=== PATIENT | male | born 1960 | race Caucasian/White ===

== ENCOUNTER 2023-03-26 06:42 | Day surgery (SDC) | payer BC, OTHER ==
[~2023-03-26] VITALS: Ht 170.2 cm; Wt 114.9 kg
[2023-03-26] MEDS ORDERED: SPIRIVA RESPIMAT4 G3 IH (06:59)
[2023-03-26] MEDS ORDERED: Ventolin/Prove6.7 GM INH (06:59)
[2023-03-26] MEDS ORDERED: MONT10T (07:00)
[2023-03-26] MEDS ORDERED: LISINOPRIL-HCT1 EAC1 PO (07:00)
[2023-03-26] MEDS ORDERED: TAMSULOSIN HCL0.4 M1 PO (07:00)
--- NOTE | 2023-03-26 07:17 | NUR ---
03/26/23 0717 Lorraine Hobson PT SITTING COMFORTABLY IN BED. CALL LIGHT WITHIN REACH. BED IN LOWEST POISITION. NO QUESTIONS OR CONCERNS FOR THIS RN.
--- NOTE | 2023-03-26 08:17 | NUR ---
03/26/23 0817 Maxine Dawn LIDOCAINE 2% WITH EPI 1:100,000 MIXED 1:1 WITH NORMAL SALINE TO MAKE LIDOCAINE 1% WITH EPI 1:200,000 FOR INJECTION AT THE OPSITE BY DR JEROME. 30ML OF EPI (1MG/ML) USED TO SOAK PLEDGETS FOR NASAL PACKING DONE BY DR JEROME.
--- NOTE | 2023-03-26 10:17 | NUR ---
03/26/23 THIAGO PACHECO PT WAS TAKEN BACK TO THE OR AT 10:[address] JEROME AFTER LOOKING AT IMAGING.
[2023-03-26 10:31] VITALS: BP 134/95
--- NOTE | 2023-03-26 10:31 | NUR ---
03/26/23 1031 THIAGO MALDONADO PT COMES BACK TO POST-OP AGAIN, STRAIGHT TO SDU.
== END 2023-03-26 11:15 | disposition home or self-care (01) ==
LOC: ORSCSDS 06:42
PROVIDERS: Otolaryngology
PROC: 099X4ZZ Drainage of Left Sphenoid Sinus, Percutaneous Endoscopic Approach (ICD-10-PCS; principal; 2023-03-26 07:30)
PROC: 099R4ZZ Drainage of Left Maxillary Sinus, Percutaneous Endoscopic Approach (ICD-10-PCS; principal; 2023-03-26 07:30)
PROC: 099W4ZZ Drainage of Right Sphenoid Sinus, Percutaneous Endoscopic Approach (ICD-10-PCS; principal; 2023-03-26 07:30)
PROC: 099Q4ZZ Drainage of Right Maxillary Sinus, Percutaneous Endoscopic Approach (ICD-10-PCS; principal; 2023-03-26 07:30)
PROC: 099U4ZZ Drainage of Right Ethmoid Sinus, Percutaneous Endoscopic Approach (ICD-10-PCS; principal; 2023-03-26 07:30)
PROC: 099V4ZZ Drainage of Left Ethmoid Sinus, Percutaneous Endoscopic Approach (ICD-10-PCS; principal; 2023-03-26 07:30)
PROC: 099S4ZZ Drainage of Right Frontal Sinus, Percutaneous Endoscopic Approach (ICD-10-PCS; principal; 2023-03-26 07:30)
PROC: 099T4ZZ Drainage of Left Frontal Sinus, Percutaneous Endoscopic Approach (ICD-10-PCS; principal; 2023-03-26 07:30)
DX: J32.4 Chronic pansinusitis (principal); J33.9 Nasal polyp, unspecified; I10 Essential (primary) hypertension; J45.909 Unspecified asthma, uncomplicated; Z79.899 Other long term (current) drug therapy; E66.9 Obesity, unspecified; Z68.39 Body mass index [BMI] 39.0-39.9, adult
CPT/HCPCS: 70030; 88305; C2625; J0171; J1100; J2250; J2405; J2704; J3010; J7120

== ENCOUNTER → 2023-06-08 | Outpatient (CLI) | payer BC, OTHER ==
[~2023-06-08] MED LIST: LISINOPRIL-HCT1 EAC1 PO; MONT10T; SPIRIVA RESPIMAT4 G3 IH; TAMSULOSIN HCL0.4 M1 PO; Ventolin/Prove6.7 GM INH
[2023-06-08 11:01] LABS: BASOPHILS ABSOLUTE AUTO 0.08 K/mm3 (0.00-0.23); BASOPHILS PERCENT AUTO 1 % (0-2); EOSINOPHILS ABSOLUTE AUTO 0.27 K/mm3 (0.00-0.68); EOSINOPHILS PERCENT AUTO 3 % (0-6); Hemoglobin 15.4 g/dL (13.5-17.5); IMMATURE GRAN ABSOLUTE AUTO 0.03 K/mm3 (0.00-0.10); IMMATURE GRAN PERCENT AUTO 0 % (0-1); LYMPHOCYTES ABSOLUTE AUTO 1.16 K/mm3 (0.84-5.20); LYMPHOCYTES PERCENT AUTO 12 % (21-46); MONOCYTES ABSOLUTE AUTO 0.64 K/mm3 (0.16-1.47); MONOCYTES PERCENT AUTO 7 % (4-13); Mean Corpuscular HGB 29.8 pg (26.0-34.0); Mean Corpuscular HGB Conc 34.2 g/dL (31.5-36.5); Mean Corpuscular Volume 87 fL (80-100); Mean Platelet Volume 9.7 fL (9.1-12.4); NEUTROPHILS ABSOLUTE AUTO 7.47 K/mm3 (1.96-9.15); NEUTROPHILS PERCENT AUTO 78 % (41-73); Platelet Count 247 K/mm3 (150-400); RDW Coefficient Variation 12.1 % (11.7-14.2); RDW Standard Deviation 38.5 fL (35.1-46.3); Red Blood Cell Count 5.17 M/mm3 (4.30-5.90); White Blood Cell Count 9.65 K/mm3 (4.00-11.30)
[2023-06-08 11:14] LABS: Albumin, Blood 3.9 g/dL (3.4-5.0); Albumin/Globulin Ratio 1.1 (0.8-1.8); Bilirubin, Total 0.5 mg/dL (0.1-1.0); Bun/Creatinine Ratio 11.9 (12.0-20.0); Calcium, Blood 9.4 mg/dL (8.5-10.1); Creatinine, Blood 1.09 mg/dL (0.60-1.20); Globulin, Blood 3.5 g/dL (2.2-4.0); Potassium, Blood 3.8 mmol/L (3.5-5.5); Total Protein, Blood 7.4 g/dL (6.4-8.2)
== END | disposition home or self-care (01) ==
LOC: LAB 10:57 → LAB SHORT 10:57
PROVIDERS: Physician Assistant
DX: R06.2 Wheezing (principal)
CPT/HCPCS: 80053; 83880; 84484; 85025

== ENCOUNTER 2023-06-24 10:16 | Inpatient (IN) | payer BC, OTHER ==
[~2023-06-24] VITALS: Ht 170.2 cm; Wt 120.9 kg
[2023-06-24] VITALS (11 sets, daily range): BP systolic 71–104; BP diastolic 51–75
[~2023-06-24 10:16] MED LIST changes: -MONT10T; +MONT10T PO; -SPIRIVA RESPIMAT4 G3 IH; +SPIRIVA RESPIMAT4 G3 INH
[2023-06-24] MEDS ORDERED: Albuterol 2.5 MG/3 ML VIAL INH SCH ×2 (10:30→12:05)
[2023-06-24] MEDS ORDERED: Ipratropium/Albuterol SulF 2.5-0.5MG/3 ML Amp INH ONE (10:30)
[2023-06-24] MEDS ORDERED: Doxycycline Hyclate 100 MG TAB PO ONE (10:30)
[2023-06-24] MEDS ORDERED: MethylPREDNISolone Sod Succ 125 MG Vial IV ONE (10:30)
[2023-06-24] MEDS ORDERED: AZIT250 PO (10:32)
[2023-06-24 11:18] LABS: Base Excess Venous 5.2 mmol/L; Bicarbonate Venous 27.7 mmol/L (24.0-30.0); PCO2 Venous 50.9 mmHg (38-42); pH Blood Venous 7.38 (7.34-7.37)
[2023-06-24 11:20] LABS: BASOPHILS ABSOLUTE AUTO 0.06 K/mm3 (0.00-0.23); BASOPHILS PERCENT AUTO 1 % (0-2); EOSINOPHILS ABSOLUTE AUTO 0.47 K/mm3 (0.00-0.68); EOSINOPHILS PERCENT AUTO 4 % (0-6); Hematocrit 45.5 % (37.0-53.0); Hemoglobin 15.4 g/dL (13.5-17.5); IMMATURE GRAN ABSOLUTE AUTO 0.04 K/mm3 (0.00-0.10); IMMATURE GRAN PERCENT AUTO 0 % (0-1); LYMPHOCYTES ABSOLUTE AUTO 1.22 K/mm3 (0.84-5.20); LYMPHOCYTES PERCENT AUTO 11 % (21-46); MONOCYTES ABSOLUTE AUTO 0.99 K/mm3 (0.16-1.47); MONOCYTES PERCENT AUTO 9 % (4-13); Mean Corpuscular HGB 29.9 pg (26.0-34.0); Mean Corpuscular HGB Conc 33.8 g/dL (31.5-36.5); Mean Corpuscular Volume 88 fL (80-100); Mean Platelet Volume 9.8 fL (9.1-12.4); NEUTROPHILS ABSOLUTE AUTO 8.44 K/mm3 (1.96-9.15); NEUTROPHILS PERCENT AUTO 75 % (41-73); Platelet Count 228 K/mm3 (150-400); RDW Coefficient Variation 12.5 % (11.7-14.2); RDW Standard Deviation 40.9 fL (35.1-46.3); Red Blood Cell Count 5.15 M/mm3 (4.30-5.90); White Blood Cell Count 11.22 K/mm3 (4.00-11.30)
[2023-06-24 11:44] LABS: Albumin, Blood 3.8 g/dL (3.4-5.0); Bilirubin, Total 1.3 mg/dL (0.1-1.0); Bun/Creatinine Ratio 17.8 (12.0-20.0); Calcium, Blood 9.7 mg/dL (8.5-10.1); Creatinine, Blood 0.84 mg/dL (0.60-1.20); Globulin, Blood 3.7 g/dL (2.2-4.0); Total Protein, Blood 7.5 g/dL (6.4-8.2)
[2023-06-24 12:00] LABS: Adenovirus Not Detected (NOT DETECT); Bordetella pertussis Not Detected (NOT DETECT); Chlamydophila pneumoniae Not Detected (NOT DETECT); Coronavirus 229E Not Detected (NOT DETECT); Coronavirus HKU1 Not Detected (NOT DETECT); Coronavirus NL63 Not Detected (NOT DETECT); Coronavirus OC43 Not Detected (NOT DETECT); Human Metapneumovirus Not Detected (NOT DETECT); Human Rhinovirus/Enterovirus Not Detected (NOT DETECT); Influenza A/2009-H1 Not Detected (NOT DETECT); Influenza A/H1 Not Detected (NOT DETECT); Influenza A/H3 Not Detected (NOT DETECT); Influenza B Not Detected (NOT DETECT); Mycoplasma pneumoniae Not Detected (NOT DETECT); Parainfluenza Virus 1 Not Detected (NOT DETECT); Parainfluenza Virus 2 Not Detected (NOT DETECT); Parainfluenza Virus 3 Not Detected (NOT DETECT); Parainfluenza Virus 4 Not Detected (NOT DETECT); Respiratory Syncytial Virus Not Detected (NOT DETECT); SARS-Cov-2 (COVID-19), BioFire Not Detected (NOT DETECT)
[2023-06-24] MEDS ORDERED: NS 1,000 ML IV SCH (12:50)
[2023-06-24] MEDS ORDERED: FLU VACC QS2023-24(6MOS UP)/PF 60 MCG/0.5 ML SYRINGE IM SCH (12:55)
[2023-06-24] MEDS ORDERED: Tiotropium Bromide 2.5 MCG/ACT MIST INHAL (10 ACT/4 GM) INH SCH (13:00)
[2023-06-24] MEDS ORDERED: Ipratropium Bromide INH 0.02% 0.5 mg/2.5ML Vial INH SCH (14:50)
[2023-06-24] MEDS ORDERED: Ipratropium/Albuterol SulF 2.5-0.5MG/3 ML Amp INH SCH (15:25)
[2023-06-24] MEDS ORDERED: Albuterol 2.5 MG/3 ML VIAL INH PRN (15:25)
[2023-06-24] MEDS ORDERED: Midodrine 5 MG Tab PO SCH (15:40)
[2023-06-24] MEDS ORDERED: MethylPREDNISolone Sod Succ 125 MG Vial IV SCH (16:00)
--- NOTE | 2023-06-24 17:16 | NUR ---
PT ADMITTED TO PCU 08. WHEN THE PT WAS ADMITTED TO 08 HE WAS FOUND TO BEE HYPOTENSIVE ON THE INITAIL SET OF VITAL SIGNS. HE RECHECKED MULTIPLE TIMES ON BOTH ARMS AND FOUND THIS TO BE TRUE. THE PT ALREADY RECIEVED A 500CC NS BOLUS IN THE ED RIGHT BEFORE ARRIVING TO PCU. I CALLED DR. VALDIVIA AND LEFT HIM A VOICEMAIL. HE THEN SHOWED UP ON THE UNIT AND SAW THE PT. HE ORDERED 10MG MIDODRINE TID. THE PT IS DIZZY, INCREASED WITH ACTIVITY, AND MOVEMENT. THE PT WAS EDUCATED TO USE THE CALL LIGHT WHEN NEEDING TO GET UP SO HE DOES NOT FALL. HE IS A&OX4, AND CAN CALL APPROPRAITELY. HE IS CURRENTLY ON 4L NC W/ SP02 >90% THE BIPAP IS ON STANDBY IN THE ROOM. HE REPORTS TO HAVE MILD SOB, AND IS FEELING "MUCH BETTER" THEN WHEN HE CAME INTO THE HOSPITAL. THE PT STATES THAT HE HAS BEEN WEANING OFF OF ALCOHOL USE FOR THE LAST COUPLE OF MONTHS. HE DRINKS 1-3 BEERS AND 1-3 SHOTS A DAY. HE STATES HIS LAST DRINK WAS 1/8 BEFORE HE STARTED FEELING "CRUDDY". HE OCCASIONALLY USES EDDIABLES ABOUT ONCE A MONTH, BUT CAN NOT REMEMBER THE LAST TIME HE USED IT. FIRE IGNITION RISK HAS BEEN ASSESSED. SEE NOTES FOR ANY UPDATES.
--- NOTE | 2023-06-24 21:30 | NUR ---
ASSUMPTION OF CARE: THIS RN ASSUMED CARE AT APPROX 1915. PATIENT ALERT, SITTING ON SIDE OF BED WATCHING TV. IS ALERT AND ORIENTED X4. ABLE TO COMMUNICATE NEEDS EFFECTIVELY, COOPERATIVE WITH CARE. TELEMETRY SHOWING SINUS 90s. BP SOFT, SBP 90s. MAP >65. RECEIVING SCHEDULED MIDODRINE. DENIES CHEST PAIN, PRESSURE. EXPERIENCES DIZZINESS WITH MOBILITY, IS A STAND BY ASSIST. IS CURRENTLY ON 2L VIA NASAL CANNULA, SATs >90%. AUDIBLE EXPIRATORY WHEEZE. IS RECEIVING SCHEDULED BREATHING TREATMENTS. RR 20-24. PATIENT REPORTS THAT HE FEELS THAT HIS BREATHING HAS IMPROVED SINCE EARLIER. IS ABLE TO REPOSITION HIMSELF INDEPENDENTLY IN BED. CALL LIGHT IN REACH.
[2023-06-25 03:12] VITALS: BP 104/68
--- NOTE | 2023-06-25 04:54 | NUR ---
SHIFT SUMMARY: NO ACUTE CHANGES SINCE ASSUMPTION OF CARE NOTE. TELEMETRY SHOWING SINUS 70s-80s. RATE INCREASE TO 90s-100s WHILE AWAKE AND WITH MOBILITY. BP REMAINS SOFT, SBP 90s-100s. MAP >65. REMAINS ON 2L VIA NASAL CANNULA WHILE AWAKE, SATs >90%. AUDIBLE EXPIRATORY WHEEZE NOTED. MILD SHORTNESS OF BREATH AT REST, RR 20-24. RECEIVING SCHEDULED BREATHING TREATMENTS. PATIENT ABLE TO TOLERATE WEARING BIPAP, 12/5 30%, FOR PART OF THE NIGHT. IS ABLE TO REPOSITION HIMSELF INDEPENDENTLY IN BED. STANDS AT BEDSIDE TO USE URINAL. VOIDING. NO BM THIS SHIFT. CALL LIGHT IN REACH. WILL REPORT TO ONCOMING RN.
[2023-06-25 05:28] LABS: BASOPHILS ABSOLUTE AUTO 0.02 K/mm3 (0.00-0.23); BASOPHILS PERCENT AUTO 0 % (0-2); EOSINOPHILS ABSOLUTE AUTO 0.01 K/mm3 (0.00-0.68); EOSINOPHILS PERCENT AUTO 0 % (0-6); Hematocrit 38.6 % (37.0-53.0); IMMATURE GRAN ABSOLUTE AUTO 0.09 K/mm3 (0.00-0.10); IMMATURE GRAN PERCENT AUTO 1 % (0-1); LYMPHOCYTES ABSOLUTE AUTO 0.56 K/mm3 (0.84-5.20); LYMPHOCYTES PERCENT AUTO 3 % (21-46); MONOCYTES ABSOLUTE AUTO 0.27 K/mm3 (0.16-1.47); MONOCYTES PERCENT AUTO 2 % (4-13); Mean Corpuscular HGB 30.1 pg (26.0-34.0); Mean Corpuscular HGB Conc 33.7 g/dL (31.5-36.5); Mean Corpuscular Volume 89 fL (80-100); Mean Platelet Volume 9.8 fL (9.1-12.4); NEUTROPHILS ABSOLUTE AUTO 15.56 K/mm3 (1.96-9.15); NEUTROPHILS PERCENT AUTO 94 % (41-73); Platelet Count 214 K/mm3 (150-400); RDW Coefficient Variation 12.7 % (11.7-14.2); RDW Standard Deviation 41.8 fL (35.1-46.3); Red Blood Cell Count 4.32 M/mm3 (4.30-5.90); White Blood Cell Count 16.51 K/mm3 (4.00-11.30)
[2023-06-25 05:47] LABS: Albumin, Blood 3.3 g/dL (3.4-5.0); Albumin/Globulin Ratio 1.1 (0.8-1.8); Bilirubin, Total 0.7 mg/dL (0.1-1.0); Bun/Creatinine Ratio 14.1 (12.0-20.0); Calcium, Blood 9.2 mg/dL (8.5-10.1); Creatinine, Blood 2.91 mg/dL (0.60-1.20); Globulin, Blood 3.1 g/dL (2.2-4.0); Potassium, Blood 4.1 mmol/L (3.5-5.5); Total Protein, Blood 6.4 g/dL (6.4-8.2)
[2023-06-25 07:44] VITALS: BP 107/68
[2023-06-25] MEDS ORDERED: Azithromycin 250 MG Tab PO SCH (09:00)
[2023-06-25] MEDS ORDERED: HydroCHLOROthiazide 25 mg Tab PO SCH (09:00)
[2023-06-25] MEDS ORDERED: Enoxaparin 40 MG/0.4 ML SYR SC SCH (09:00)
[2023-06-25] MEDS ORDERED: Montelukast Sodium 10 MG Tab PO SCH (09:00)
[2023-06-25] MEDS ORDERED: Tamsulosin HCl 0.4 MG Cap PO SCH (09:00)
[2023-06-25] MEDS ORDERED: Lisinopril 20 MG Tab PO SCH (09:00)
[2023-06-25 12:32] VITALS: BP 120/74
[2023-06-25 15:08] VITALS: BP 102/67
[2023-06-25 17:04] VITALS: BP 134/63
--- NOTE | 2023-06-25 17:07 | NUR ---
SHIFT SUMMARY PT REMAINS ALERT AND ORIENTED. BP STABLE. HR REMAINS NSR TO SINUS TACH LOW 100'S. PT TITRATED TO RA WITH SATS >90%. WHEEZES CONTINUE THROUGHOUT LUNG BASES. PT ABLE TO USE THE URINAL INDEPENDENTLY TO VOID. PT DENIES ANY PAIN. WILL CONTINUE TO MONITOR AND REPORT TO ONCOMING RN
[2023-06-25 19:35] VITALS: BP 118/67
--- NOTE | 2023-06-25 20:32 | NUR ---
ASSUMPTION OF CARE: AFTER RECEIVING REPORT FROM ALLAN LEON, THIS RN ASSUMED CARE AT APPROX 1915. PATIENT ALERT, SITTING UP IN BED WATCHING TV DURING INITIAL ENCOUNTER. IS MEDICAL STATUS WITH TELEMETRY. TELEMETRY SHOWING SINUS TACH 100s-110s. BP STABLE, SBP 110s. MAP >65. DENIES CHEST PAIN, PRESSURE. IS ON BASELINE ROOM AIR, SATs 88-91%. BIPAP AT BEDSIDE FOR USE WHILE SLEEPING OR FOR RESCUE. MILD TACHYPNEA AT REST, RR 20-24. EXPIRATORY WHEEZE NOTED. OCCASIONAL COUGH NOTED. IS RECEIVING SCHEDULED BREATHING TREATMENTS. REPORTS THAT HE FEELS THAT HIS BREATHING HAS IMPROVED SINCE ADMISSION. PATIENT ABLE TO REPOSITION HIMSELF IN BED. STANDS AT BEDSIDE TO USE URINAL. CALL LIGHT IN REACH.
--- NOTE | 2023-06-25 22:33 | NUR ---
REPORT GIVEN TO RUSSELL LEON TO ASSUME CARE
--- NOTE | 2023-06-25 22:56 | NUR ---
ASSUMPTION OF CARE RECEIVED INTO CARE, REPORT GIVEN BY PREVIOUS RN. PT AWAKE SITTING ON EDGE OF BED WATCHING TV. ALERT AND ORIENTED. DENIES ANY PAIN. ON TELE IN SINUS TACH. ON RA, SPO2>94%, TACHPNEIC, CHEST DIMINISHED/WHEEZY UPON AUSCULTATION. STATES DOES NOT WANT TO PUT BIPAP ON AT THIS TIME, WANTS TO FALL ASLEEP FIRST AND ONCE ASLEEP CAN PUT THE BIPAP ON. USING URINALS TO VOID, FRESH WATER GIVEN. NO N/V. NO VOICED CONCERNS AT THIS TIME. CALL BENDER IN REACH.
[2023-06-26 04:01] VITALS: BP 127/80
[2023-06-26 05:08] LABS: Hematocrit 37.6 % (37.0-53.0); Hemoglobin 12.9 g/dL (13.5-17.5); Mean Corpuscular HGB 30.4 pg (26.0-34.0); Mean Corpuscular HGB Conc 34.3 g/dL (31.5-36.5); Mean Corpuscular Volume 89 fL (80-100); Platelet Count 196 K/mm3 (150-400); RDW Standard Deviation 41.7 fL (35.1-46.3); Red Blood Cell Count 4.25 M/mm3 (4.30-5.90); White Blood Cell Count 17.53 K/mm3 (4.00-11.30)
[2023-06-26 05:36] LABS: Bun/Creatinine Ratio 32.6 (12.0-20.0); Creatinine, Blood 1.81 mg/dL (0.60-1.20); Potassium, Blood 3.8 mmol/L (3.5-5.5)
[2023-06-26 06:00] LABS: BAND PERCENT MAN 5 % (0-8); BASOPHILS PERCENT MAN 0 % (0-2); EOSINOPHILS PERCENT MAN 0 % (0-6); LYMPHOCYTES ABSOLUTE MAN 1.92 K/mm3 (0.84-5.20); LYMPHOCYTES PERCENT MAN 11 % (21-46); MONOCYTES ABSOLUTE MAN 0.35 K/mm3 (0.16-1.47); MONOCYTES PERCENT MAN 2 % (4-13); NEUTROPHILS ABSOLUTE MAN 15.25 K/mm3 (1.96-9.15); SEG NEUTROPHILS PERCENT MAN 82 % (41-73); TOTAL CELLS COUNTED 100
--- NOTE | 2023-06-26 06:20 | NUR ---
shift summary ALERT AND OREINTED. SLET WELL THROUGHOUT NIGHT. INDEP W ADLS. NO PAIN/N/V. IN SR/ST, BP STABLE SBP 120S. ON RA/BIPAP OVERNIGHT. NO VOICED CONCERS. CALL BENDER IN REACH. REMAINS LYING IN BED WITH EYES CLOSED, APPEARS IN NO DISTRESS. SPO2>92.
[2023-06-26 07:44] VITALS: BP 121/90
[2023-06-26] MEDS ORDERED: Ipratropium/Albuterol SulF 2.5-0.5MG/3 ML Amp INH SCH (08:35)
[2023-06-26 11:02] LABS: Source, Urine Clean Catch
[2023-06-26 11:37] LABS: Appearance, Urine Clear (Clear); Bilirubin, Urine Neg (Neg); Blood, Urine 1+ (Neg); Glucose Qualitative, Urine 2+ (Neg); Ketones, Urine Neg (Neg); Leukocyte Esterase, Urine Neg (Neg); Nitrite, Urine Neg (Neg); Protein, Urine Neg (Neg); Specific Gravity, Urine 1.015 (1.003-1.022); Urobilinogen, Urine NORM (Normal)
[2023-06-26 12:35] LABS: Color, Urine Pale Yellow (P-Yellow)
[2023-06-26 12:36] LABS: White Blood Cells, Urine 0-2 /hpf (0-5)
[2023-06-26 12:37] LABS: Bacteria Rare /hpf; Red Blood Cells, Urine 0-2 /hpf (0-2); Squamous Epithelial Cells Not Seen /hpf (Few)
[2023-06-26] MEDS ORDERED: NS 1,000 ML IV SCH (15:10)
[2023-06-26 15:34] VITALS: BP 136/98
[2023-06-26] MEDS ORDERED: AZIT250 PO (16:45)
[2023-06-26] MEDS ORDERED: PRED20 PO (16:48)
--- NOTE | 2023-06-26 17:53 | NUR ---
DISHCHARGED TO HOME, VERBAL AND WRITTEN INSTRUCTIONS GIVEN. RX'S FAXED TO [facility].
== END 2023-06-26 17:35 | disposition home or self-care (01) | DRG 189 ==
LOC: ER 10:16 → PCU 12:55
PROVIDERS: Internal Medicine; Student in an Organized Health Care Education/Training Program; ADMIT Family Medicine
PROC: 5A09357 Assistance with Respiratory Ventilation, Less than 24 Consecutive Hours, Continuous Positive Airway Pressure (ICD-10-PCS; principal; 2023-06-24)
DX: J96.01 Acute respiratory failure with hypoxia (principal); J44.1 Chronic obstructive pulmonary disease with (acute) exacerbation; N40.0 Benign prostatic hyperplasia without lower urinary tract symptoms; M19.90 Unspecified osteoarthritis, unspecified site; I10 Essential (primary) hypertension; F10.90 Alcohol use, unspecified, uncomplicated; E66.9 Obesity, unspecified; Z98.890 Other specified postprocedural states; Z68.39 Body mass index [BMI] 39.0-39.9, adult; Z11.52 Encounter for screening for COVID-19
CPT/HCPCS: 0202U; 36415; 71045; 76770; 80048; 80053; 81001; 82570; 82803; 83735; 84300; 85025; 93005; 93010; 93306; 94640; 94644; 94645; 94660; 94664; 94760; 94762; 96374; 99285-25; A9270; J1650; J2930; J7030

== ENCOUNTER 2023-07-20 16:48 | Emergency (ER) | payer BC, OTHER ==
[~2023-07-20] VITALS: Ht 170.2 cm; Wt 118.4 kg
[2023-07-20 20:21] VITALS: BP 165/115
== END 2023-07-20 20:22 | disposition home or self-care (01) ==
LOC: ER 16:48
DX: I26.99 Other pulmonary embolism without acute cor pulmonale (principal); Z79.899 Other long term (current) drug therapy; Z79.52 Long term (current) use of systemic steroids; J44.9 Chronic obstructive pulmonary disease, unspecified; I10 Essential (primary) hypertension

== ENCOUNTER 2023-11-18 08:01 | Emergency (ER) | payer BC, OTHER ==
[~2023-11-18] VITALS: Ht 170.2 cm; Wt 117.9 kg
[~2023-11-18 08:01] MED LIST changes: +AZIT250 PO; +ELIQUIS5 M2 PO; +LOSARTAN POTAS100 MG PO; +PRED20 PO; +SPIRIVA RESPIMAT4 G3; +TRELEGY ELLIPT1 EAC1 INH; +XARELTO15 MG PO
[2023-11-18 09:03] LABS: BASOPHILS ABSOLUTE AUTO 0.07 K/mm3 (0.00-0.23); BASOPHILS PERCENT AUTO 1 % (0-2); EOSINOPHILS ABSOLUTE AUTO 0.45 K/mm3 (0.00-0.68); EOSINOPHILS PERCENT AUTO 6 % (0-6); Hematocrit 45.4 % (37.0-53.0); Hemoglobin 15.2 g/dL (13.5-17.5); IMMATURE GRAN ABSOLUTE AUTO 0.01 K/mm3 (0.00-0.10); IMMATURE GRAN PERCENT AUTO 0 % (0-1); LYMPHOCYTES ABSOLUTE AUTO 0.83 K/mm3 (0.84-5.20); LYMPHOCYTES PERCENT AUTO 11 % (21-46); MONOCYTES ABSOLUTE AUTO 0.59 K/mm3 (0.16-1.47); MONOCYTES PERCENT AUTO 8 % (4-13); Mean Corpuscular HGB Conc 33.5 g/dL (31.5-36.5); Mean Corpuscular Volume 84 fL (80-100); Mean Platelet Volume 9.5 fL (9.1-12.4); NEUTROPHILS ABSOLUTE AUTO 5.33 K/mm3 (1.96-9.15); NEUTROPHILS PERCENT AUTO 73 % (41-73); Platelet Count 237 K/mm3 (150-400); RDW Coefficient Variation 13.2 % (11.7-14.2); RDW Standard Deviation 39.8 fL (35.1-46.3); Red Blood Cell Count 5.42 M/mm3 (4.30-5.90); White Blood Cell Count 7.28 K/mm3 (4.00-11.30)
[2023-11-18 09:15] LABS: Influenza A, PCR NEGATIVE (NEGATIVE); Influenza B, PCR NEGATIVE (NEGATIVE); Resp Syncytial Virus, PCR NEGATIVE (NEGATIVE); SARS-Cov-2 (COVID-19) PCR, MMC NEGATIVE (NEGATIVE)
[2023-11-18 09:19] LABS: Albumin, Blood 3.8 g/dL (3.4-5.0); Bilirubin, Total 0.5 mg/dL (0.1-1.0); Bun/Creatinine Ratio 14.7 (12.0-20.0); Calcium, Blood 8.9 mg/dL (8.5-10.1); Creatinine, Blood 0.89 mg/dL (0.60-1.20); Globulin, Blood 3.7 g/dL (2.2-4.0); Potassium, Blood 4.2 mmol/L (3.5-5.5); Total Protein, Blood 7.5 g/dL (6.4-8.2)
[2023-11-18] MEDS ORDERED: Albuterol 2.5 MG/3 ML VIAL INH SCH (11:25)
[2023-11-18] MEDS ORDERED: PredniSONE 20 MG Tab PO ONE (11:25)
[2023-11-18] MEDS ORDERED: Azithromycin 250 MG Tab PO ONE (11:25)
[2023-11-18] MEDS ORDERED: TRELEGY ELLIPT1 EAC1 INH (12:46)
[2023-11-18] MEDS ORDERED: Prednisone20 MG PO (12:46)
[2023-11-18] MEDS ORDERED: Zithromax250 MG PO (12:46)
[2023-11-18 12:55] VITALS: BP 187/87
== END 2023-11-18 12:55 | disposition home or self-care (01) ==
LOC: ER 08:01
PROVIDERS: Student in an Organized Health Care Education/Training Program
DX: J44.1 Chronic obstructive pulmonary disease with (acute) exacerbation (principal); Z76.0 Encounter for issue of repeat prescription; I10 Essential (primary) hypertension; Z79.899 Other long term (current) drug therapy
CPT/HCPCS: 0241U; 71046; 80053; 83880; 85025; 93005; 93010; 94644; 94664; 99285-25; A9270; J7512

== ENCOUNTER 2025-03-20 09:23 | Day surgery (SDC) | payer BC, OTHER ==
[2025-03-20] VITALS (15 sets, daily range): BP systolic 119–164; BP diastolic 89–133
[~2025-03-20] VITALS: Ht 170.2 cm; Wt 111.3 kg
[~2025-03-20 09:23] MED LIST changes: +Prednisone20 MG PO; +Zithromax250 MG PO
--- NOTE | 2025-03-20 09:55 | NUR ---
Ambulatory in Day Surgery. Pre-Op teaching done. Pt verbalizes understanding. History, Chart, Medications and Allergies reviewed before start of procedure. Patient confirms NPO status and agrees with scheduled surgery. Patient States Post-Procedure ride home has been arranged.
[2025-03-20] MEDS ORDERED: Diovan40 MG PO (10:09)
[2025-03-20] MEDS ORDERED: FINA5 PO (10:11)
[2025-03-20] MEDS ORDERED: VALS80 PO (10:11)
[2025-03-20] MEDS ORDERED: Midazolam HCl 1MG / ML 2ML Vial ONE (10:44)
--- NOTE | 2025-03-20 11:01 | NUR ---
03/20/25 1101 Alicia Brooks CONFIRMED AND REVIEWED H&P, MEDCICATIONS, ALLERGIES, MEDICAL HISTORY, RESPIRATORY HISTORY, VITAL SIGNS, 3-LEAD EKG, CONSENTS, AND PHYSICIAN ORDERS. PATIENT CONFIRMS NPO STATUS AND AGREES WITH SCHEDULED PROCEDURE. MONITOR INTACT WITH CONTINUOUS PULSE OXIMETRY, CAPNOGRAPHY, 3-LEAD EKG, INTERMITTENT BP. SUPPLEMENTAL O2 TO BE TITRATED THROUGHOUT PROCEDURE TO MAINTAIN O2 SATURATION ABOVE 90%. PATIENT DETERMINED TO BE ASA APPROPRIATE FOR PROPOFOL SEDATION PRIOR TO START OF PROCEDURE BY .MALLAMPATI CLASS 3 AIRWAY: VISUALIZATION OF ONLY THE BASE OF THE UVULA.
--- NOTE | 2025-03-20 11:31 | NUR ---
Discharge instructions reviewed with patient. Patient verbalizes understanding. Copy given to patient to take home. Patient States Post-Procedure ride home has been arranged. Discharged via wheelchair to private car for ride home.
== END 2025-03-20 11:39 | disposition home or self-care (01) ==
LOC: ORSCMMR 09:23 → ORD 10:30 → ORSCMMR 11:00
PROVIDERS: Internal Medicine Gastroenterology
PROC: 0DJD8ZZ Inspection of Lower Intestinal Tract, Via Natural or Artificial Opening Endoscopic (ICD-10-PCS; principal; 2025-03-20 11:00)
DX: Z12.11 Encounter for screening for malignant neoplasm of colon (principal); I10 Essential (primary) hypertension; N40.0 Benign prostatic hyperplasia without lower urinary tract symptoms; Z86.711 Personal history of pulmonary embolism; Z79.899 Other long term (current) drug therapy
CPT/HCPCS: J2250; J2704; J7120